=== PATIENT | female | born 1985 | race African-American/Black ===

== ENCOUNTER 2018-08-08 08:13 | Day surgery (SDC) | payer OTHER ==
[~2018-08-08 08:13] MED LIST: CEFAZOLIN 2 GM/50 ML (PMX) 50 ML IVPB; GLYCOPYRROLATE 0.4 MG INJ; LIDOCAINE 2% (SDV) 5 ML INJ; SOD CHLORIDE 0.9% 1,000 ML IV
[2018-08-08] MEDS ORDERED: MIDAZOLAM 1 MG/ML 2 ML INJ (11:20)
[2018-08-08] MEDS ORDERED: PROPOFOL 40 ML (11:20)
[2018-08-08] MEDS ORDERED: ONDANSETRON 4 MG INJ (11:21)
[2018-08-08] MEDS ORDERED: DEXAMETHASONE 4 MG/ML 1 ML INJ (11:21)
[2018-08-08] MEDS ORDERED: FAMOTIDINE 20 MG INJ (11:21)
[2018-08-08] MEDS ORDERED: FENTAnyl 50 MCG/ML VIAL (11:21)
[2018-08-08] MEDS ORDERED: CEFAZOLIN 1 GM INJ (11:21)
[2018-08-08 11:36] LABS: ADD MAN DIFF? NO
[2018-08-08 11:40] LABS: EOSINOPHILS % 0.5 % (0.0-7.0); HEMATOCRIT 29.7 % (37.0-47.0); LYMPHOCYTES # 1.5 10^3/ul (0.8-2.9); LYMPHOCYTES % 38.4 % (15.0-51.0); MEAN CORPUSCULAR HEMOGLOBIN 34.5 pg (29.0-33.0); MEAN CORPUSCULAR VOLUME 104.6 fl (82.0-101.0); MEAN PLATELET VOLUME 9.3 fl (7.4-10.4); MONOCYTE # 0.5 10^3/ul (0.3-0.9); MONOCYTES % 12.9 % (0.0-11.0); NEUTROPHIL # 1.9 10^3/ul (1.6-7.5); NEUTROPHILS % 47.7 % (39.0-77.0); PLATELET COUNT 200 10^3/UL (140-415); RED BLOOD COUNT 2.84 10^6/ul (4.20-5.40); RED CELL DISTRIBUTION WIDTH 12.7 % (11.5-14.5)
[2018-08-08 11:53] LABS: HOLD TRANSMISSIONS 1
[2018-08-08 11:55] LABS: HEMOGLOBIN 9.8 g/dl (12.0-16.0)
[2018-08-08 12:03] LABS: ALANINE AMINOTRANSFERASE 29 IU/L (13-69); ALBUMIN 4.2 g/dl (3.3-4.9); ALKALINE PHOSPHATASE 64 IU/L (42-121); ANION GAP 12 (5-13); ASPARTATE AMINO TRANSFERASE 22 IU/L (15-46); BILIRUBIN,INDIRECT 0.3 mg/dl (0-1.1); BILIRUBIN,TOTAL 0.3 mg/dl (0.2-1.3); CALCIUM 9.2 mg/dl (8.4-10.2); CARBON DIOXIDE 25 mmol/L (21-31); CHLORIDE 107 mmol/L (97-110); CREATININE 0.66 mg/dl (0.44-1.00); Estimated GFR > 60 mL/min (>60); GLUCOSE 87 mg/dl (70-220); POTASSIUM 3.6 mmol/L (3.5-5.1); SODIUM 144 mmol/L (135-144); TOTAL PROTEIN 7.2 g/dl (6.1-8.1)
[2018-08-08 12:08] LABS: BLOOD UREA NITROGEN 4 mg/dl (7-20)
[2018-08-08 12:23] LABS: INR 0.94; PROTIME 12.7 Sec (11.9-14.9)
[2018-08-08] MEDS ORDERED: METOCLOPRAMIDE 10 MG INJ (12:26)
[2018-08-08] MEDS ORDERED: DIPHENHYDRAMINE 50 MG INJ IV (12:30)
[2018-08-08] MEDS ORDERED: ALBUTEROL 0.083% (NEB) 2.5 MG/3 ML AMP HHN (12:30)
[2018-08-08] MEDS ORDERED: LABETALOL HCL 20MG INJ IV (12:30)
[2018-08-08] MEDS ORDERED: OXYCODONE/ACETAMINOPHEN (5/325) TAB PO ×2 (12:30)
[2018-08-08] MEDS ORDERED: morphine (1 MG/ML) 10ML SYRINGE IV ×2 (12:30)
[2018-08-08] MEDS ORDERED: HYDROmorphONE 1 MG/5 ML IV SYRINGE IV (12:30)
[2018-08-08] MEDS ORDERED: FENTAnyl 50 MCG/ML VIAL IV (12:30)
[2018-08-08] MEDS ORDERED: PHENYLephrine (100 MCG/ML) 5ML SYG (12:37)
[2018-08-08] MEDS ORDERED: PHENYLephrine 10 MG INJ (12:53)
[2018-08-08] MEDS: ISOSULFAN BLUE 1% 5 ML INJ SC (13:02)
[2018-08-08] MEDS ORDERED: PROVENTIL HFA 6.7GM INHALER (13:08)
[2018-08-08] MEDS ORDERED: MAGNESIUM SULFATE 1 GM/D5W 100 ML (13:09)
[2018-08-08] MEDS ORDERED: ONDANSETRON 4 MG INJ IV (14:00)
[2018-08-08] MEDS ORDERED: ACETAMINOPHEN 1000MG/100ML IV 100 ML IVPB (14:00)
[2018-08-08] MEDS: MEPERIDINE 25 MG INJ IV (14:14)
[2018-08-08] MEDS: FENTAnyl 50 MCG/ML VIAL IV (14:15)
[2018-08-08] MEDS: ONDANSETRON 4 MG INJ IV (14:16)
[2018-08-08] MEDS: HYDROmorphONE 1 MG/5 ML IV SYRINGE IV (14:43)
[2018-08-08] MEDS: D5W-0.45 NACL + KCL 20 MEQ 1,000 ML IV ×3 (15:47→23:23)
[2018-08-08] MEDS: morphine 2 MG INJ IV (21:06)
[2018-08-08] MEDS ORDERED: HYDROCODONE/APAP (5/325) TAB PO (23:30)
[2018-08-09] MEDS: morphine 2 MG INJ IV (05:38)
[2018-08-09] MEDS: D5W-0.45 NACL + KCL 20 MEQ 1,000 ML IV ×3 (05:39→13:54)
[2018-08-09] MEDS: HYDROCODONE/APAP (5/325) TAB PO ×2 (10:08→15:39)
== END 2018-08-09 16:05 | disposition home or self-care (01) ==
LOC: SDS 08:13 → REC 14:20 → 2NE 15:15 → REC 15:15 → SDS 13:55 → 2NE 15:15
DX: C50.912 Malignant neoplasm of unspecified site of left female breast (principal); C77.3 Secondary and unspecified malignant neoplasm of axilla and upper limb lymph nodes
CPT/HCPCS: 19301; 80053; 84703; 85025; 85610; 85730; 88307